=== PATIENT | female | born 1955 | race Caucasian/White ===

== ENCOUNTER → 2016-09-07 | Outpatient (CLI) | payer OTHER ==
[2015-04-24 11:00] VITALS: BP 140/76
[~2016-09-07] MED LIST: ACET325T9 PO; ALLO300T PO; AMOX1TAB61 PO; ASPI-482 PO; CYAN10002 IM; DICL100T PO; DICL75TA PO; ERGO500012 PO; FAMO10TA26 PO; IOHEXOL 240 MG/ML 50ML VIAL. PO ONE; IOHEXOL 300 MG/ML 100ML VIAL. IV ONE; MIRA25TA PO; OMEG1CAP38 PO; SIMV10TA PO; TRAM50TA PO; VENTOLIN HFA18 GM INH
--- NOTE | 2016-09-07 11:21 | KCIC ---
CT abdomen pelvis with contrast Indication: Right colon mass noted on recent colonoscopy. Axial imaging through the abdomen and pelvis was performed after the administration of intravenous contrast. PQRS STATEMENT One or more of the following individualized dose reduction techniques were utilized for this study: 1.Automated exposure control. 2.Adjustment of the mA and/orkVaccording to patient size. 3.Use of iterative reconstruction technique. Comparison is made with prior CT from 10/17/2005. The lung bases are clear. No discrete liver mass is detected. The gallbladder appears surgically absent. The pancreas and spleen are unremarkable. No adrenal mass is detected. The kidneys are unremarkable. Aorta is calcified but not aneurysmal. The small and large bowel loops are normal in caliber. No definite right colonic mass is identified. No central retroperitoneal or mesenteric lymphadenopathy is seen. There is no ascites. There is sigmoid diverticulosis without evidence of diverticulitis. The uterus and bladder are unremarkable. No inguinal or iliac lymphadenopathy is seen. Impression: Sigmoid diverticulosis without evidence of acute diverticulitis. No colonic mass or evidence of abdominal or pelvic lymphadenopathy is detected. No liver mass is detected. Electronically signed by: Genaro Almaraz MD (Sep 07, 2016 11:19:28)
== END | disposition home or self-care (01) ==
LOC: KCIC CT 09:42
PROVIDERS: ATTEND Internal Medicine Gastroenterology
DX: K63.89 Other specified diseases of intestine (principal)
CPT/HCPCS: 74177; Q9966; Q9967

== ENCOUNTER → 2016-10-02 | Outpatient (CLI) | payer OTHER ==
[2015-04-24 11:00] VITALS: BP 140/76
[~2016-10-02] MED LIST changes: -IOHEXOL 240 MG/ML 50ML VIAL. PO ONE; -IOHEXOL 300 MG/ML 100ML VIAL. IV ONE
--- NOTE | 2016-10-02 10:33 | RAD ---
DATE: 10/02/2016 EXAM: DIGITAL SCREEN BILAT W/CAD HISTORY: Screening COMPARISON: One year ago This study was interpreted with the benefit of Computerized Aided Detection (CAD). FINDINGS: Breast Density: FATTY The Breast Parenchyma is primarily fatty replaced. Breast parenchyma level density A.. There has not been a significant change in the appearance of the breasts compared to the previous exam IMPRESSION: Benign finding BI-RADS CATEGORY: 2 BENIGN FINDING(S) RECOMMENDED FOLLOW-UP: 12M 12 MONTH FOLLOW-UP PQRS compliance statement: Patient information was entered into a reminder system with a target due date 10/02/2017 for the next mammogram. Mammography is a sensitive method for finding small breast cancers, but it does not detect them all and is not a substitute for careful clinical examination. A negative mammogram does not negate a clinically suspicious finding and should not result in delay in biopsying a clinically suspicious abnormality. "Our facility is accredited by the [employer] Mammography Program."
== END | disposition home or self-care (01) ==
LOC: MAMMO 09:37
PROVIDERS: ATTEND Family Medicine
DX: Z12.31 Encounter for screening mammogram for malignant neoplasm of breast (principal)
CPT/HCPCS: G0202; 77067

== ENCOUNTER → 2016-10-22 | Outpatient (CLI) | payer OTHER ==
[2015-04-24 11:00] VITALS: BP 140/76
[~2016-10-22] MED LIST changes: +AMOX875T PO; +ASCO500C PO; +BENZ100C PO; -ERGO500012 PO; +ERGO500027 PO; +FERR-26 PO; +PROAIR HFA8.5 GM INH; +PROAIR RESPICL90 MCG IH
[2016-10-22 13:57] LABS: BASO % 1 % (0-3); EOS % 5 % (0-3); HEMATOCRIT 39.4 % (36.0-47.0); HEMOGLOBIN 13.2 g/dL (12.0-15.5); LYMPH # 1.5 x10^3/uL (1.0-4.8); LYMPH % 31 % (24-48); MEAN CORPUSCULAR HEMOGLOBIN 30 pg (25-35); MEAN CORPUSCULAR HGB CONC 34 g/dL (31-37); MEAN CORPUSCULAR VOLUME 90 fL (79-100); MONO % 9 % (0-9); NEUT % 55 % (31-73); PLATELET COUNT 252 x10^3/uL (140-400); RED BLOOD COUNT 4.38 x10^6/uL (3.50-5.40); RED CELL DISTRIBUTION WIDTH 17.2 % (11.5-14.5); WHITE BLOOD COUNT 4.8 x10^3/uL (4.0-11.0)
[2016-10-22 14:07] LABS: ALBUMIN 2.9 g/dL (3.4-5.0); CALCIUM 8.5 mg/dL (8.5-10.1)
[2016-10-22 14:29] LABS: ANISOCYTOSIS SLIGHT; PLT ESTIMATE INCREASED (ADEQUATE)
== END | disposition home or self-care (01) ==
LOC: SURGPAT 12:46
PROVIDERS: ATTEND Surgery
DX: Z01.812 Encounter for preprocedural laboratory examination (principal)
CPT/HCPCS: 36415; 80048; 82040; 85007; 85027

== ENCOUNTER 2016-10-26 10:54 | Emergency (ER) | payer OTHER ==
[~2016-10-26] VITALS: Ht 160 cm; Wt 89.4 kg
[~2016-10-26 10:54] MED LIST changes: -AMOX875T PO; -BENZ100C PO; -PROAIR RESPICL90 MCG IH
[2016-10-26 11:10] VITALS: BP 141/86
--- NOTE | 2016-10-26 11:50 | RAD ---
Chest, 2 views, 10/26/2016: History: Shortness of breath, cough, ear infection Comparison is made to a study from 11/01/2012. The heart size and pulmonary vascularity are normal. No pulmonary infiltrates are seen. There is no evidence of pleural fluid. Mild spurring is present in the spine. IMPRESSION: No acute cardiopulmonary abnormality is detected.
[2016-10-26] MEDS ORDERED: PROAIR RESPICL90 MCG IH (12:20)
[2016-10-26] MEDS ORDERED: AMOX875T PO (12:20)
[2016-10-26] MEDS ORDERED: BENZ100C PO (12:20)
--- NOTE | 2016-10-26 12:21 | PHYS DOC ---
Past Medical History Past Medical History: Arthritis, Asthma, Cancer, High Cholesterol Additional Past Medical Histor: COLON CA, URINARY INCONTINENCE Past Surgical History: Appendectomy, Cholecystectomy, Knee Replacement, Oophorectomy, Tubal ligation Additional Past Surgical Histo: BX KNEE. OVARIAN CYSTS - OOPHORECTOMY. Alcohol Use: None Drug Use: None Adult General Chief Complaint Chief Complaint: COUGH HPI HPI Patient is a 61 year old female with a history of high cholesterol asthma bronchitis and colon cancer who presents today with bilateral ear pain, sore throat, coughing and nasal congestion for 3 days. Patient states she also had subjective fevers last night. Patient denies any chest pain. Patient states she is scheduled to have a partial colectomy next week and would like to make sure she does not have any infection that requires antibiotic treatment. Review of Systems Review of Systems Constitutional: Subjective fevers Eyes: Denies change in visual acuity, redness, or eye pain [] HENT: bilateral ear pain, nasal congestion and sore throat [] Respiratory: cough Cardiovascular: No additional information not addressed in HPI [] GI: Denies abdominal pain, nausea, vomiting, bloody stools or diarrhea [] : Denies dysuria or hematuria [] Musculoskeletal: Denies back pain or joint pain [] Integument: Denies rash or skin lesions [] Neurologic: Denies headache, focal weakness or sensory changes [] Endocrine: Denies polyuria or polydipsia [] Allergies Allergies Allergies Coded Allergies Type Severity Reaction Last Updated Verified Tetanus Vaccines and Toxoid Allergy Intermediate body aches 04/22/15 No aspirin Allergy Intermediate severe stomach cramps 04/22/15 Yes codeine Allergy Intermediate stomach upset 04/22/15 No Physical Exam Physical Exam Constitutional: Well developed, well nourished, no acute distress, non-toxic appearance. [] HENT: Normocephalic, atraumatic, bilateral external ears normal, oropharynx moist, no oral exudates, nose normal. Bilateral TM are moderately injected with small amount of cloudy fluid. Eyes: PERRLA, EOMI, conjunctiva normal, no discharge. [] Neck: Normal range of motion, no tenderness, supple, no stridor. [] Cardiovascular:Heart rate regular rhythm, no murmur [] Lungs & Thorax: Bilateral breath sounds clear to auscultation [] Abdomen: Bowel sounds normal, soft, no tenderness, no masses, no pulsatile masses. [] Skin: Warm, dry, no erythema, no rash. [] Back: No tenderness, no CVA tenderness. [] Extremities: No tenderness, no cyanosis, no clubbing, ROM intact, no edema. [] Neurologic: Alert and oriented X 3, normal motor function, normal sensory function, no focal deficits noted. [] Psychologic: Affect normal, judgement normal, mood normal. [] Current Patient Data Vital Signs Vital Signs Date Time Temp Pulse Resp B/P (MAP) Pulse Ox O2 Delivery O2 Flow Rate FiO2 10/26/16 11:10 98.0 99 18 96 Room Air 98.0 EKG EKG [] Radiology/Procedures Radiology/Procedures [] Course & Med Decision Making Course & Med Decision Making Pertinent Labs and Imaging studies reviewed. (See chart for details) Patient is in the ED with complaints of ear pain cough and nasal congestion. She is scheduled to have a partial colectomy next week. Chest x-ray interpreted by radiologist as negative for any acute findings. She was discharged with amoxicillin for 10 days. Tylenol/Motrin recommended for pain or fever. She was also discharged with Tessalon Perles. Follow-up with PCP next week. Dragon Disclaimer Dragon Disclaimer This electronic medical record was generated, in whole or in part, using a voice recognition dictation system. Departure Departure Impression: Primary Impression: Otitis media Additional Impressions: Upper respiratory infection Fever Cough Pharyngitis, acute Disposition: HOME, SELF-CARE Condition: STABLE Referrals: NICHOLAS DALE MD (PCP) Follow-up with your doctor next week Patient Instructions: Cough, Child, Fever, Child, Otitis Media, Child, Viral and Bacterial Pharyngitis Additional Instructions: You were seen for an ear infection, pharyngitis, coughing and nasal congestion. We put you on antibiotics. Ensure you complete them. You can take Tylenol /Motrin for pain or fever. We sent you home with an inhaler and cough medicine use them as needed. Scripts Benzonatate (TESSALON PERLE) 100 Mg Capsule 1 CAP PO TID, #30 CAP Prov: MUTUNGA,REBECCA TRUCK DRIVER 10/26/16 Amoxicillin (AMOXICILLIN) 875 Mg Tablet 1 TAB PO BID, #20 TAB Prov: MUTUNGA,REBECCA TRUCK DRIVER 10/26/16 Albuterol Sulfate (Proair Respiclick) 90 Mcg Aer.pow.ba 1 PUFF IH PRN Q6HRS Y for SHORTNESS OF BREATH, #1 INHALER Prov: REBECCA HAILE TRUCK DRIVER 10/26/16 Problem Qualifiers Primary Impression: Otitis media Otitis media type: other nonsuppurative Laterality: bilateral Chronicity: acute Recurrence: not specified as recurrent Qualified Codes: H65.193 - Other acute nonsuppurative otitis media, bilateral Additional Impressions: Upper respiratory infection URI type: unspecified URI Qualified Codes: J06.9 - Acute upper respiratory infection, unspecified Fever Fever type: unspecified Qualified Codes: R50.9 - Fever, unspecified Pharyngitis, acute Pharyngitis/tonsillitis etiology: unspecified etiology Qualified Codes: J02.9 - Acute pharyngitis, unspecified REBECCA HAILE TRUCK DRIVER Oct 26, 2016 12:21
== END 2016-10-26 12:23 | disposition home or self-care (01) ==
LOC: ER 10:54
DX: H65.193 Other acute nonsuppurative otitis media, bilateral (principal); J06.9 Acute upper respiratory infection, unspecified; E78.00 Pure hypercholesterolemia, unspecified; J45.909 Unspecified asthma, uncomplicated; Z85.038 Personal history of other malignant neoplasm of large intestine; Z88.6 Allergy status to analgesic agent; Z88.5 Allergy status to narcotic agent; Z88.7 Allergy status to serum and vaccine
CPT/HCPCS: 71020; 99284

== ENCOUNTER → 2016-12-06 | Outpatient (CLI) | payer OTHER ==
[2016-11-23 14:34] VITALS: BP 156/77
[~2016-12-06] MED LIST changes: +AMOX875T PO; +BENZ100C PO; +CETI10TA22 PO; +IOHEXOL 300 MG/ML 100ML VIAL. IV ONE; +MOME13HF2 IH; +OXYC1TAB7 PO; +PROAIR RESPICL90 MCG IH
--- NOTE | 2016-12-06 12:48 | KCIC ---
CHEST CT WITH CONTRAST Clinical indications: Colon cancer. TECHNIQUE: After IV infusion of 75 mL of Omnipaque 300, helical CT scanning of the chest was performed. PQRS compliance Statement One or more of the following individualized dose reduction techniques were utilized for this study: 1. Automated exposure control 2. Adjustment of the mA and/or kV according to patient size 3. Use of iterative reconstruction technique COMPARISON: No previous chest CT available. FINDINGS: No enlarged thoracic lymphadenopathy is seen. No focal aneurysmal dilatation or dissection of the thoracic aorta is seen. The heart size is normal and no pericardial effusion is seen. No pleural effusion or pneumothorax is seen. Calcified granulomas of the right upper lobe are seen. No lung mass or lung consolidation is evident. No pleural effusion or pneumothorax is seen. The proximal bronchial tree is patent. No adrenal mass is evident. No osteolytic process is seen. There is inflammatory change within the anterior abdominal wall and properitoneal fat in association with a new anterior abdominal wall midline incision. Therefore this most likely is postoperative in nature. IMPRESSION: No lung metastatic disease or enlarged lymphadenopathy is seen. Electronically signed by: Chapito Wiggins MD (12/06/2016 12:45 PM) [id number]
== END | disposition home or self-care (01) ==
LOC: KCIC CT 08:04
PROVIDERS: ATTEND Surgery
DX: C18.9 Malignant neoplasm of colon, unspecified (principal)
CPT/HCPCS: 71260

== ENCOUNTER → 2016-12-13 | Day surgery (SDC) | payer OTHER ==
[~2016-12-13] VITALS: Ht 162.6 cm; Wt 87.1 kg
[~2016-12-13] MED LIST changes: +BUPIVACAINE 0.5% 50 ML VIAL. ONE; +BUPIVACAINE-EPI 0.5%-1:200000 50 ML VIAL. ONE; +HEPARIN SODIUM 5,000 UNIT in IV NORMAL SALINE 500ML BAG 500 ML IRR ONE; +HYDROmorphone 2 MG/ML VIAL IV PRN; -IOHEXOL 300 MG/ML 100ML VIAL. IV ONE; +IV RINGERS,LACTATED 1000ML 1,000 ML IV SCH; +LIDOCAINE 1% 1 ML SYRINGE. ID PRN; +MIDAZOLAM HCL/PF 2 MG/2 ML VIAL. ONE; +MORPHINE SULFATE 2 MG/ML DISP.SYRIN. IV PRN; +ONDANSETRON PF 4 MG/2 ML VIAL. IV PRN; +PROCHLORPERAZINE 10 MG/2 ML VIAL. IV PRN; +PROPOFOL 50 ML IV ONE; +ceFAZolin 2GM PREMIX 2 GM/50 ML BAG IV ONE; +fentaNYL PF VIAL 100 MCG/2 ML VIAL IV PRN; +fentaNYL PF VIAL 100 MCG/2 ML VIAL ONE
--- NOTE | 2016-12-13 08:49 | PDOC ---
BRIEF OPERATIVE NOTE Date: Dec 13, 2016 Pre-Op Diagnosis needs venous access for chemotherapy Post-Op Diagnosis same Procedure Performed placement left subclavian power port Surgeon Elie Anesthesia Type: MAC Blood Loss 5cc IV Fluid 800cc Findings post op CXR shows tip in SVC without evidence of a pneumothorax Complications none JOSH BENJAMIN MD Dec 13, 2016 08:49
--- NOTE | 2016-12-13 08:51 | DISCH ---
DISCHARGE INSTRUCTIONS Condition on Discharge Condition on Discharge: Stable Activity After Discharge Activity Instructions for Disc: Activity as tolerated, Avoid exertion Lifting Instructions after Dis: No heavy lifting Driving Instructions after Dis: Do not drive today Diet after Discharge Diet after Discharge: Regular Wound Incision Care Wound/Incision Care: Ice to area for comfort Other wound/incision instructi: leave dressing on Follow-Up Follow up with: Elie two weeks JOSH BENJAMIN MD Dec 13, 2016 08:51
[2016-12-13 09:26] VITALS: BP 134/53
--- NOTE | 2016-12-13 09:55 | RAD ---
Portable chest, 12/13/2016: History: Check catheter placement Comparison is made to a study from 10/26/2006. A left Port-A-Cath has been inserted with its tip lying in the superior vena cava. The heart size and pulmonary vascularity are normal. No pulmonary infiltrates are seen. There is no evidence of pleural fluid or pneumothorax. IMPRESSION: 1. A left Port-A-Cath extends into the superior vena cava. 2. No acute cardiopulmonary abnormality is detected.
--- NOTE | 2016-12-13 10:58 | OP ---
DATE OF SURGERY: 12/13/2016 PREOPERATIVE DIAGNOSIS: Needs venous access for chemotherapy. POSTOPERATIVE DIAGNOSIS: Needs venous access for chemotherapy. PROCEDURE: Placement of a left subclavian PowerPort. SURGEON: Josh Benjamin MD ANESTHESIA: Local with sedation. ESTIMATED BLOOD LOSS: 5 mL. INTRAVENOUS FLUIDS: 800. INDICATIONS: The patient is an obese 61-year-old female status post colon resection for cancer, brought for placement of PowerPort to initiate adjuvant chemotherapy. DESCRIPTION OF PROCEDURE: The patient brought to the operating suite and the infraclavicular areas were prepped and draped in usual sterile fashion. With the bed in Trendelenburg the left infraclavicular area was infiltrated with 0.5% Marcaine plain at the junction medial to those lateral ____ fingerbreath below the clavicle. A small incision made and a seeker needle used to identify the subclavian vein. The flexible guidewire was advanced through the needle into the superior vena cava and then the needle was removed. Table returned to level. Port pocket incision infiltrated with 0.5% Marcaine with epinephrine and incised and developed. Catheter was laid on the chest on with a C-arm ____ appropriate length was assessed. The catheter was then tunneled from the insertion site to the pocket site where it was attached to the reservoir. The reservoir was seated in the pocket and the patient was placed back in Trendelenburg. Under fluoroscopic observation, the dilator and sheath were passed over the wire. The wire was removed. The dilator was removed and the catheter was threaded through the sheath and the sheath was then removed. There was good flow into and out of the catheter completion. Pocket incision closed with interrupted 3-0 Vicryl suture. Skin incisions closed with subcuticular 4-0 Monocryl. Steri-Strips and sterile dressing applied. Prior to dressing the wound final aspiration and flushed and the port was carried out. Postop upper chest x-ray showed the tip of the catheter to reside in the superior vena cava without evidence of pneumothorax. The patient was taken to the postoperative in stable condition having tolerated the procedure well. JOSH BENJAMIN MD DR: QAMAR/beverly JOB#: [id number] / [id number]
== END | disposition home or self-care (01) ==
LOC: SURG 06:31
PROVIDERS: ATTEND Surgery
DX: C18.9 Malignant neoplasm of colon, unspecified (principal); E78.00 Pure hypercholesterolemia, unspecified; J45.909 Unspecified asthma, uncomplicated; E66.9 Obesity, unspecified; M19.90 Unspecified osteoarthritis, unspecified site; Z68.44 Body mass index [BMI] 60.0-69.9, adult; M10.9 Gout, unspecified; F41.9 Anxiety disorder, unspecified; F17.200 Nicotine dependence, unspecified, uncomplicated; D64.9 Anemia, unspecified; Z98.51 Tubal ligation status; Z87.39 Personal history of other diseases of the musculoskeletal system and connective tissue; Z86.39 Personal history of other endocrine, nutritional and metabolic disease; Z96.653 Presence of artificial knee joint, bilateral; Z88.6 Allergy status to analgesic agent; Z90.49 Acquired absence of other specified parts of digestive tract; Z88.7 Allergy status to serum and vaccine; Z88.8 Allergy status to other drugs, medicaments and biological substances; Z79.82 Long term (current) use of aspirin
CPT/HCPCS: 36556; 71010; J0690; J1644; J2250; J2704; J3010; J3490; J7040; C1769; C1788

== ENCOUNTER → 2017-01-08 | Outpatient (CLI) | payer OTHER ==
[2016-12-13 09:26] VITALS: BP 134/53
[~2017-01-08] MED LIST changes: -BUPIVACAINE 0.5% 50 ML VIAL. ONE; -BUPIVACAINE-EPI 0.5%-1:200000 50 ML VIAL. ONE; -HEPARIN SODIUM 5,000 UNIT in IV NORMAL SALINE 500ML BAG 500 ML IRR ONE; -HYDROmorphone 2 MG/ML VIAL IV PRN; -IV RINGERS,LACTATED 1000ML 1,000 ML IV SCH; -LIDOCAINE 1% 1 ML SYRINGE. ID PRN; -MIDAZOLAM HCL/PF 2 MG/2 ML VIAL. ONE; -MORPHINE SULFATE 2 MG/ML DISP.SYRIN. IV PRN; -ONDANSETRON PF 4 MG/2 ML VIAL. IV PRN; -PROCHLORPERAZINE 10 MG/2 ML VIAL. IV PRN; -PROPOFOL 50 ML IV ONE; -ceFAZolin 2GM PREMIX 2 GM/50 ML BAG IV ONE; -fentaNYL PF VIAL 100 MCG/2 ML VIAL IV PRN; -fentaNYL PF VIAL 100 MCG/2 ML VIAL ONE
--- NOTE | 2017-01-08 12:43 | RAD ---
PA and lateral chest x-ray compared to portable chest dated December 13, 2016 for hemoptysis, chemotherapy, history of colon cancer. Findings: The lungs are clear. There is an accessory azygos fissure which is of no clinical significance. Left port is present and unchanged. Degenerative changes of the acromioclavicular joints are seen bilaterally. No other significant osseous abnormalities are evident. Impression: 1. No acute cardiopulmonary abnormality.
== END | disposition home or self-care (01) ==
LOC: RAD 11:08
PROVIDERS: ATTEND Nurse Practitioner Adult Health
DX: R04.2 Hemoptysis (principal); Z85.038 Personal history of other malignant neoplasm of large intestine
CPT/HCPCS: 71020

== ENCOUNTER 2017-03-06 10:39 | Emergency (ER) | payer OTHER ==
[~2017-03-06] VITALS: Ht 160 cm; Wt 84.8 kg
[2017-03-06] MEDS ORDERED: ONDANSETRON PF 4 MG/2 ML VIAL. IV ONE (11:15)
[2017-03-06] MEDS ORDERED: FAMOTIDINE 20 MG/2 ML VIAL IVP ONE (11:15)
[2017-03-06] MEDS ORDERED: IV NORMAL SALINE 1000ML BAG 1,000 ML IV ONE (11:15)
[2017-03-06 11:20] LABS: BASO % 0 % (0-3); EOS % 0 % (0-3); HEMATOCRIT 44.6 % (36.0-47.0); HEMOGLOBIN 14.8 g/dL (12.0-15.5); LYMPH # 0.9 x10^3/uL (1.0-4.8); LYMPH % 13 % (24-48); MEAN CORPUSCULAR HEMOGLOBIN 31 pg (25-35); MEAN CORPUSCULAR HGB CONC 33 g/dL (31-37); MEAN CORPUSCULAR VOLUME 94 fL (79-100); MONO % 16 % (0-9); NEUT % 71 % (31-73); PLATELET COUNT 176 x10^3/uL (140-400); RED BLOOD COUNT 4.73 x10^6/uL (3.50-5.40); RED CELL DISTRIBUTION WIDTH 19.4 % (11.5-14.5); WHITE BLOOD COUNT 7.1 x10^3/uL (4.0-11.0)
--- NOTE | 2017-03-06 11:20 | PHYS DOC ---
Past Medical History Past Medical History: Arthritis, Asthma, Cancer, High Cholesterol Additional Past Medical Histor: COLON CA, URINARY INCONTINENCE Past Surgical History: Appendectomy, Cholecystectomy, Knee Replacement, Oophorectomy, Tubal ligation Additional Past Surgical Histo: BX KNEE. OVARIAN CYSTS - OOPHORECTOMY. Alcohol Use: None Drug Use: None Adult General Chief Complaint Chief Complaint: ABDOMINAL PAIN HPI HPI Patient is a 61 year old female with history of high cholesterol, asthma, arthritis, colon cancer currently on chemotherapy who presents today with mid bilateral abdominal pain, nausea vomiting and diarrhea that began 4 days ago. Patient denies any hematemesis or melena. Denies any fever. Last chemotherapy treatment on 02/26/2017 Review of Systems Review of Systems Constitutional: Denies fever or chills [] Eyes: Denies change in visual acuity, redness, or eye pain [] HENT: Denies nasal congestion or sore throat [] Respiratory: Denies cough or shortness of breath [] Cardiovascular: No additional information not addressed in HPI [] GI: mid abdominal pain, nausea, vomiting, and diarrhea [] : Denies dysuria or hematuria [] Musculoskeletal: Denies back pain or joint pain [] Integument: Denies rash or skin lesions [] Neurologic: Denies headache, focal weakness or sensory changes [] Current Medications Current Medications Current Medications Medications (Trade) Dose Ordered Sig/Sammy Start Time Stop Time Status Last Admin Dose Admin Famotidine (Pepcid) 20 mg 1X ONCE 03/06/17 11:15 03/06/17 11:16 DC 03/06/17 11:32 20 MG Info (Do NOT chart on this entry -- for MONITORING) 1 each PRN DAILY PRN 03/06/17 11:45 03/08/17 11:44 Iohexol (Omnipaque 300 Mg/ml) 75 ml 1X ONCE 03/06/17 11:30 03/06/17 11:35 DC 03/06/17 11:43 75 ML Ondansetron HCl (Zofran) 8 mg 1X ONCE 03/06/17 11:15 03/06/17 11:16 DC 03/06/17 11:32 8 MG Sodium Chloride 1,000 ml @ 1,000 mls/hr 1X ONCE 03/06/17 11:15 03/06/17 12:14 DC 03/06/17 11:32 1,000 MLS/HR Allergies Allergies Allergies Coded Allergies Type Severity Reaction Last Updated Verified Tetanus Vaccines and Toxoid Allergy Intermediate body aches 11/22/16 Yes aspirin Allergy Intermediate severe stomach cramps 11/19/16 Yes lactose Allergy Intermediate 11/20/16 Yes meperidine Adverse Reaction Intermediate 11/19/16 Yes codeine Adverse Reaction Mild stomach upset 11/23/16 Yes Physical Exam Physical Exam Constitutional: Well developed, well nourished, no acute distress, non-toxic appearance. [] HENT: Normocephalic, atraumatic, bilateral external ears normal, oropharynx moist, no oral exudates, nose normal. [] Eyes: PERRLA, EOMI, conjunctiva normal, no discharge. [] Neck: Normal range of motion, no tenderness, supple, no stridor. [] Cardiovascular:Heart rate regular rhythm, no murmur [] Lungs & Thorax: Bilateral breath sounds clear to auscultation [] Abdomen: Old healed surgical incision noted midline abdomen. Tenderness diffusely midline abdomen. No right upper quadrant or right lower quadrant tenderness. Bowel sounds normal, soft, no masses, no pulsatile masses. [] Skin: Warm, dry, no erythema, no rash. [] Back: No tenderness, no CVA tenderness. [] Extremities: No tenderness, no cyanosis, no clubbing, ROM intact, no edema. [] Neurologic: Alert and oriented X 3, normal motor function, normal sensory function, no focal deficits noted. [] Psychologic: Affect normal, judgement normal, mood normal. [] Current Patient Data Vital Signs Vital Signs Date Time Temp Pulse Resp B/P (MAP) Pulse Ox O2 Delivery O2 Flow Rate FiO2 03/06/17 11:05 98.3 114 14 167/84 (111) 100 Room Air 98.3 Lab Values Laboratory Tests Test 03/06/17 11:10 03/06/17 11:11 White Blood Count 7.1 x10^3/uL (4.0-11.0) Red Blood Count 4.73 x10^6/uL (3.50-5.40) Hemoglobin 14.8 g/dL (12.0-15.5) Hematocrit 44.6 % (36.0-47.0) Mean Corpuscular Volume 94 fL (79-100) Mean Corpuscular Hemoglobin 31 pg (25-35) Mean Corpuscular Hemoglobin Concent 33 g/dL (31-37) Red Cell Distribution Width 19.4 % (11.5-14.5) H Platelet Count 176 x10^3/uL (140-400) Neutrophils (%) (Auto) 71 % (31-73) Lymphocytes (%) (Auto) 13 % (24-48) L Monocytes (%) (Auto) 16 % (0-9) H Eosinophils (%) (Auto) 0 % (0-3) Basophils (%) (Auto) 0 % (0-3) Neutrophils # (Auto) 5.1 x10^3uL (1.8-7.7) Lymphocytes # (Auto) 0.9 x10^3/uL (1.0-4.8) L Monocytes # (Auto) 1.1 x10^3/uL (0.0-1.1) Eosinophils # (Auto) 0.0 x10^3/uL (0.0-0.7) Basophils # (Auto) 0.0 x10^3/uL (0.0-0.2) Sodium Level 133 mmol/L (136-145) L Potassium Level 3.2 mmol/L (3.5-5.1) L Chloride Level 97 mmol/L (98-107) L Carbon Dioxide Level 25 mmol/L (21-32) Anion Gap 11 (6-14) Blood Urea Nitrogen 19 mg/dL (7-20) Creatinine 1.1 mg/dL (0.6-1.0) H Estimated GFR (Cockcroft-Gault) 50.2 BUN/Creatinine Ratio 17 (6-20) Glucose Level 123 mg/dL (70-99) H Calcium Level 8.7 mg/dL (8.5-10.1) Total Bilirubin 0.5 mg/dL (0.2-1.0) Aspartate Amino Transferase (AST) 27 U/L (15-37) Alanine Aminotransferase (ALT) 26 U/L (14-59) Alkaline Phosphatase 195 U/L (46-116) H Total Protein 7.2 g/dL (6.4-8.2) Albumin 2.9 g/dL (3.4-5.0) L Albumin/Globulin Ratio 0.7 (1.0-1.7) L Lipase 368 U/L (73-393) Urine Collection Type Unknown Urine Color Jane Urine Clarity Clear Urine pH 6.5 Urine Specific [place] >=1.030 Urine Protein 100 mg/dL (NEG-TRACE) Urine Glucose (UA) Negative mg/dL (NEG) Urine Ketones (Stick) Trace mg/dL (NEG) Urine Blood Negative (NEG) Urine Nitrite Negative (NEG) Urine Bilirubin Moderate (NEG) Urine Urobilinogen Dipstick 1.0 mg/dL (0.2 mg/dL) Urine Leukocyte Esterase Small (NEG) Urine RBC Occ /HPF (0-2) Urine WBC 1-4 /HPF (0-4) Urine Squamous Epithelial Cells Few /LPF Urine Bacteria Many /HPF (0-FEW) Urine Hyaline Casts Occasional /HPF Urine Mucus Marked /LPF Laboratory Tests 03/06/17 11:10 Laboratory Tests 03/06/17 11:10 EKG EKG 11:[address] Madsen sinus rhythm, heart rate 100, no STEMI.[] Radiology/Procedures Radiology/Procedures [] Course & Med Decision Making Course & Med Decision Making Pertinent Labs and Imaging studies reviewed. (See chart for details) This is a 61-year-old female patient with history of colon cancer currently on chemotherapy presenting today with mid abdominal pain, nausea, vomiting and diarrhea for 4 days. CBC CMP lipase with no acute findings. CT of the abdomen and pelvic was negative for any acute findings. Urine negative for infection shows patient is dehydrated. Patient was given IV fluids in the ED with good relief of her symptoms. She states she is feeling better. She was discharged with instructions to push fluids. She was also discharged with dicyclomine. She has Zofran and Compazine at home. She is to follow-up with her PCP in the next 1 -3 days. Discharged with Lomotil. Dragon Disclaimer Dragon Disclaimer This electronic medical record was generated, in whole or in part, using a voice recognition dictation system. Departure Departure Impression: Primary Impression: Nausea and vomiting Additional Impressions: Diarrhea Dehydration Disposition: 01 HOME, SELF-CARE Condition: STABLE Referrals: Jose DALE MD (PCP) Follow up in 1-3 days Patient Instructions: Dehydration, Adult, Diarrhea, [id number], Nausea and Vomiting, [id number] Additional Instructions: You were seen with symptoms consistent with dehydration. Please push fluids. Take the Compazine or Zofran you have at home as needed for nausea or vomiting. Take Lomotil for diarrhea. Follow up with your doctor in the next 1-3 days. Come back to the ED if symptoms worsen. Scripts Diphenoxylate Hcl/Atropine (LOMOTIL TABLET) 1 Each Tablet 1 TAB PO TID Y for DIARRHEA, #20 TAB Prov: REBECCA HAILE APRN 03/06/17 Problem Qualifiers Primary Impression: Nausea and vomiting Vomiting type: unspecified Vomiting Intractability: non-intractable Qualified Codes: R11.2 - Nausea with vomiting, unspecified Additional Impressions: Diarrhea Diarrhea type: unspecified type Qualified Codes: R19.7 - Diarrhea, unspecified REBECCA HAILE APRN Mar 06, 2017 11:20
[2017-03-06 11:21] LABS: BILIRUBIN,URINE MODERATE (NEG); GLUCOSE,URINE NEGATIVE (NEG); NITRITE,URINE NEGATIVE (NEG); PH,URINE 6.5; PROTEIN,URINE 100 mg/dL (NEG-TRACE)
[2017-03-06 11:27] LABS: CALCIUM 8.7 mg/dL (8.5-10.1); CREATININE 1.1 mg/dL (0.6-1.0); GFR 50.2; POTASSIUM 3.2 mmol/L (3.5-5.1)
[2017-03-06] MEDS ORDERED: IOHEXOL 300 MG/ML 75 ML VIAL IV ONE (11:30)
[2017-03-06 11:33] LABS: ALBUMIN 2.9 g/dL (3.4-5.0); ALBUMIN/GLOBULIN RATIO 0.7 (1.0-1.7); TOTAL BILIRUBIN 0.5 mg/dL (0.2-1.0); TOTAL PROTEIN 7.2 g/dL (6.4-8.2)
[2017-03-06 11:37] LABS: BACTERIA,URINE MANY /HPF (0-FEW); RBC,URINE OCC /HPF (0-2); SQUAMOUS EPITHELIAL CELL,UR FEW /LPF
[2017-03-06] MEDS ORDERED: CONTRAST GIVEN MC PRN (11:45)
--- NOTE | 2017-03-06 12:51 | RAD ---
CT of the abdomen and pelvis with contrast, 03/06/2017: History: Nausea and vomiting Multidetector CT imaging was performed following an IV bolus injection of iodinated contrast material. No oral contrast material was given for this study. There are calcified granulomata in the liver and spleen. There is no evidence of a hepatic mass or bile duct dilatation. The gallbladder is surgically absent. No pancreatic abnormality is detected. The spleen is of normal size. The kidneys show no evidence of obstruction or mass. There is mild aortoiliac calcific plaquing. There is no evidence of aneurysm. No abdominal or pelvic adenopathy is seen. The uterus is unremarkable. There has been partial resection of the right colon. The appendix is surgically absent. The bowel loops are not dilated. No free air or free fluid is evident in the abdomen or pelvis. There is soft tissue thickening involving the anterior abdominal wall at the upper pelvic level near the midline compatible with postsurgical scarring in this patient with a history of previous hernia repair. There is no evidence of recurrent hernia. There are adjacent matted small bowel loops in the anterior aspect of the pelvis without evidence of obstruction. There is a moderate lumbar scoliosis with extensive multilevel degenerative change. IMPRESSION: 1. Postsurgical findings as described above. 2. No acute abdominal or pelvic abnormality is detected. PQRS Compliance Statement: One or more of the following individualized dose reduction techniques were utilized for this examination: 1. Automated exposure control 2. Adjustment of the mA and/or kV according to patient size 3. Use of iterative reconstruction technique
[2017-03-06 12:58] VITALS: BP 151/80
--- NOTE | 2017-03-06 13:11 | EKG ---
[facility] [address] [place] [address] Test Date: 2017-03-06 Test Time: 11:15:12 Pat Name: CARROLL HERNANDEZ Department: Room: Gender: F Protein Specialist: : [id number] Requested By: STAFF NON Order Number: [id number] Reading MD: Mackenzie Richard Measurements Intervals [place] Rate: 100 P: 34 DE: 134 QRS: -39 QRSD: 76 T: 26 QT: 324 QTc: 421 Interpretive Statements SINUS RHYTHM ABNORMAL LEFT AXIS DEVIATION LOW LIMB LEAD VOLTAGE Electronically Signed On 03-09-2017 14:36:42 CDT by Mackenzie Richard
[2017-03-06] MEDS ORDERED: DIPH1TAB PO (13:12)
[2017-03-06] MEDS ORDERED: DICYCLOMINE HCL 10 MG CAPSULE PO ONE (13:15)
[2017-03-06] MEDS ORDERED: traMADol 50 MG TABLET PO ONE (13:15)
== END 2017-03-06 13:56 | disposition home or self-care (01) ==
LOC: ER 10:39
DX: E86.0 Dehydration (principal); R11.2 Nausea with vomiting, unspecified; R19.7 Diarrhea, unspecified; E78.00 Pure hypercholesterolemia, unspecified; J45.909 Unspecified asthma, uncomplicated; M19.90 Unspecified osteoarthritis, unspecified site; Z98.890 Other specified postprocedural states; Z90.49 Acquired absence of other specified parts of digestive tract; Z90.721 Acquired absence of ovaries, unilateral; Z98.51 Tubal ligation status; Z88.5 Allergy status to narcotic agent; Z88.7 Allergy status to serum and vaccine; Z88.8 Allergy status to other drugs, medicaments and biological substances; Z91.011 Allergy to milk products
CPT/HCPCS: 36415; 74177; 80053; 81001; 83690; 85025; 87086; 93005; 96361; 96374; 96375; 99285; J2405; J7030; Q9967; S0028

== ENCOUNTER → 2017-08-19 | Outpatient (CLI) | payer OTHER ==
[2017-08-19] MEDS: IOHEXOL 240 MG/ML 50ML VIAL. PO (10:38)
[2017-08-19] MEDS: IOHEXOL 300 MG/ML 100ML VIAL. IV (10:38)
== END | disposition home or self-care (01) ==
LOC: KCIC CT 09:27
DX: C18.2 Malignant neoplasm of ascending colon (principal); K43.2 Incisional hernia without obstruction or gangrene; J84.10 Pulmonary fibrosis, unspecified; Z90.49 Acquired absence of other specified parts of digestive tract
CPT/HCPCS: 71260; 74177; Q9966; Q9967

== ENCOUNTER → 2017-10-21 | Outpatient (CLI) | payer OTHER | END | disposition home or self-care (01) | LOC: MAMMO 10:33 | DX: Z12.31 Encounter for screening mammogram for malignant neoplasm of breast (principal) | CPT/HCPCS: 77067 ==

== ENCOUNTER → 2018-09-05 | Outpatient (CLI) | payer OTHER ==
[~2018-09-05] MED LIST changes: +ALBU2.5V8 INH; +CONTRAST GIVEN. MC PRN; +DIPH1TAB PO; -FERR-26 PO; +FERR325T14 PO; +IOHEXOL 240 MG/ML 50ML VIAL. PO ONE; +IOHEXOL 300 MG/ML 100ML VIAL. IV ONE; -PROAIR HFA8.5 GM INH
--- NOTE | 2018-09-05 17:00 | RAD ---
Examination: CT CHEST ABD PELVIS W/CONTRAST History: SURVIELLANCE OF COLON CA INJ 60ML OMNI 300 PREV SENT Comparison/Correlation: 08/19/2017 CT chest abdomen pelvis with contrast Findings: Axial images of the chest, abdomen, and pelvis were obtained following IV contrast. Sagittal and coronal reformatted images were provided. Small left thyroid lobe nodule is unchanged. Calcified granulomas involve the anterior right upper lung field anteriorly. No suspicious pulmonary nodule or mass lesion. No infiltrate or pleural effusion. No enlarged thoracic lymph nodes. Small hiatal hernia is present. Azygous lobe incidentally is seen. No enlarged thoracic lymph nodes. Cholecystectomy noted. Calcified granulomas involve the liver and spleen. Pancreas is normal. Adrenal glands are unremarkable. Ventral epigastric level abdominal wall hernia defect containing omental fat is present. Abdominal wall deformity compatible with previous surgical intervention noted. Kidneys are unremarkable. No enlarged abdominal or pelvic lymph nodes. Diverticulosis is present. No bowel obstruction or extraluminal gas. Uterus is unremarkable. No ascites or pelvic free fluid. Ileocolic anastomosis is present. No suspicious wall thickening at the site of the ileocolic anastomosis as described previously. Absence of the ascending colon noted. Severe multilevel degenerative space narrowing of the lumbar spine is present with vacuum phenomenon. Facet joint degenerative changes at multiple levels bilaterally noted. No acute bony process. This Impression: No evidence of mass or inflammatory process. No findings to suggest recurrence, lymphadenopathy, or metastases. Small hiatal hernia. Postoperative changes of the abdominal wall. Small epigastric level ventral wall hernia defect contains omental fat. PQRS Compliance Statement: One or more of the following individualized dose reduction techniques were utilized for this examination: 1. Automated exposure control 2. Adjustment of the mA and/or kV according to patient size 3. Use of iterative reconstruction technique Electronically signed by: Baldemar Stanton MD (09/05/2018 4:57 PM) [facility]
== END | disposition home or self-care (01) ==
LOC: CT 14:15
PROVIDERS: ATTEND Internal Medicine Hematology & Oncology
DX: C18.2 Malignant neoplasm of ascending colon (principal); K44.9 Diaphragmatic hernia without obstruction or gangrene; K57.30 Diverticulosis of large intestine without perforation or abscess without bleeding; K43.9 Ventral hernia without obstruction or gangrene; J84.10 Pulmonary fibrosis, unspecified; K76.89 Other specified diseases of liver; D73.89 Other diseases of spleen; M48.061 Spinal stenosis, lumbar region without neurogenic claudication; M47.816 Spondylosis without myelopathy or radiculopathy, lumbar region; Z90.49 Acquired absence of other specified parts of digestive tract
CPT/HCPCS: 71260; 74177; Q9966; Q9967

== ENCOUNTER → 2019-01-13 | Outpatient (CLI) | payer MEDICAID ==
[~2019-01-13] MED LIST changes: -CONTRAST GIVEN. MC PRN; -IOHEXOL 240 MG/ML 50ML VIAL. PO ONE; -IOHEXOL 300 MG/ML 100ML VIAL. IV ONE
--- NOTE | 2019-01-13 15:19 | RAD ---
DATE: 01/13/2019 EXAM: DIGITAL SCREEN BILAT W/CAD HISTORY: Asymptomatic screening mammogram. COMPARISON: Prior mammogram from 10/21/2017, 10/02/2016, 09/15/2015 This study was interpreted with the benefit of Computerized Aided Detection (CAD). Breast Density: SCATTERED The breast parenchyma shows scattered fibroglandular densities. Breast parenchyma level B. FINDINGS: 2-D CC and MLO views of each breast were obtained. Right breast: There are no suspicious microcalcifications, masses or areas of architectural distortion. Left breast: There are no suspicious microcalcifications, masses or areas of architectural distortion. Bilateral mammograms compared to prior examinations and appears unchanged. IMPRESSION: Negative bilateral mammogram. BI-RADS CATEGORY: 1 NEGATIVE RECOMMENDED FOLLOW-UP: 12M 12 MONTH FOLLOW-UP PQRS compliance statement: Patient information was entered into a reminder system with a target due date 01/14/2020 for the next mammogram. Mammography is a sensitive method for finding small breast cancers, but it does not detect them all and is not a substitute for careful clinical examination. A negative mammogram does not negate a clinically suspicious finding and should not result in delay in biopsying a clinically suspicious abnormality. "Our facility is accredited by the [employer] Mammography [employer]."
== END | disposition home or self-care (01) ==
LOC: MAMMO 13:43
PROVIDERS: ATTEND Family Medicine
DX: N64.89 Other specified disorders of breast (principal); Z12.31 Encounter for screening mammogram for malignant neoplasm of breast
CPT/HCPCS: 77067

== ENCOUNTER → 2019-11-16 | Outpatient (CLI) | payer OTHER, MEDICAID ==
[~2019-11-16] MED LIST changes: -CETI10TA22 PO; +CETI10TA24 PO; +IOHEXOL 240 MG/ML 50ML VIAL. PO ONE; +IOHEXOL 300 MG/ML 100ML VIAL. IV ONE
--- NOTE | 2019-11-16 14:14 | KCIC ---
EXAM: CT Chest, Abdomen, and Pelvis with IV contrast INDICATION: Reason: COLON CANCER / Spl. Instructions: ORAL AND IV OMNI 300 100ML / History: TECHNIQUE: Multi-detector row CT images were acquired from the thoracic inlet through the ischial tuberosities with the use of IV contrast. Sagittal and coronal images were acquired from the transaxial data. All CT scans performed at this facility utilize dose optimization techniques as appropriate to the exam, including the following: Automated exposure control and adjustment of the mA and/or KV according to patient size (this includes techniques or standardized protocols for targeted exams where dose is indication/reason for exam). IV CONTRAST: Administered ORAL CONTRAST: Administered COMPARISON: Chest abdomen pelvis CT with IV contrast of 09/05/2018. FINDINGS: CHEST: CARDIOVASCULAR: Unremarkable MEDIASTINUM & DONNA: No adenopathy or masses. Calcified right hilar nodes noted.. LUNGS: No pulmonary infiltrate, suspicious nodule, or other significant focal abnormality. Calcified granuloma in the right upper lobe are noted. PLEURAL SPACE: No pleural effusions or pneumothorax. OSSEOUS & SOFT TISSUE: Unremarkable ABDOMEN/PELVIS: LIVER: Scattered calcifications compatible with granulomas. Otherwise unremarkable. BILIARY SYSTEM: Gallbladder surgically absent. Bile ducts are not abnormally dilated. PANCREAS: Unremarkable SPLEEN: Scattered splenic granulomas. Otherwise unremarkable. ADRENALS: Unremarkable KIDNEYS & URETERS: Unremarkable BLADDER: Unremarkable REPRODUCTIVE ORGANS: Unremarkable GASTROINTESTINAL: Enteric contrast administered dilutes gradually to collapsed small bowel loops leading into one of 2 ventral abdominal wall bowel-containing hernias. The more superior ventral hernia has a 1.2 cm neck and contains an unopacified small bowel loop. No perienteric soft tissue stranding. The appendix is not seen and may be surgically absent. There are no findings for bowel obstruction, perforation or acute inflammation. MESENTERY/PERITONEUM/RETROPERITONEUM: Unremarkable VASCULAR: Scattered arterial calcifications. LYMPH NODES: No adenopathy OSSEOUS & SOFT TISSUES: Fat-containing ventral abdominal hernia also noted just below the transverse colon 11 cm caudal to the xiphoid process. IMPRESSION: Posttreatment changes in the abdomen but no findings suspicious for recurrent or metastatic disease. Electronically signed by: Ping Belle MD (11/16/2019 2:11 PM) [id number]
== END | disposition home or self-care (01) ==
LOC: KCIC CT 08:38
PROVIDERS: ATTEND Internal Medicine Hematology & Oncology
DX: K43.9 Ventral hernia without obstruction or gangrene (principal); C18.2 Malignant neoplasm of ascending colon; J98.4 Other disorders of lung; Q42.8 Congenital absence, atresia and stenosis of other parts of large intestine; I70.91 Generalized atherosclerosis; J84.10 Pulmonary fibrosis, unspecified; Z90.49 Acquired absence of other specified parts of digestive tract; Z88.6 Allergy status to analgesic agent; Z88.5 Allergy status to narcotic agent; Z88.8 Allergy status to other drugs, medicaments and biological substances
CPT/HCPCS: 71260; 74177; 82565; Q9966; Q9967

== ENCOUNTER → 2020-02-24 | Outpatient (CLI) | payer MEDICAID ==
[~2020-02-24] MED LIST changes: -CETI10TA24 PO; +CETI10TA74 PO; -IOHEXOL 240 MG/ML 50ML VIAL. PO ONE; -IOHEXOL 300 MG/ML 100ML VIAL. IV ONE
--- NOTE | 2020-02-24 16:23 | RAD ---
DATE: 02/24/2020 1:39 PM EXAM: MAMMO [facility] SCREENING BILATERAL HISTORY: Screening COMPARISON: 01/13/2019, 10/21/2017 Bilateral CC and MLO views of the breasts were performed. Bilateral breast tomosynthesis was performed in CC and MLO projections. This study was interpreted with the benefit of Computerized Aided Detection (CAD). FINDINGS: Breast Density: SCATTERED The breast parenchyma shows scattered fibroglandular densities. Breast parenchyma level B No suspicious masses, microcalcifications or architectural distortion is present to suggest malignancy in either breast. The visualized axillae are unremarkable. IMPRESSION: No mammographic evidence of malignancy. BI-RADS CATEGORY: 1 NEGATIVE RECOMMENDED FOLLOW-UP: 12M 12 MONTH FOLLOW-UP Annual screening mammography is recommended, unless clinically indicated sooner based on symptoms or change in physical exam. PQRS compliance statement: Patient information was entered into a reminder system with a target due date for the next mammogram. Mammography is a sensitive method for finding small breast cancers, but it does not detect them all and is not a substitute for careful clinical examination. A negative mammogram does not negate a clinically suspicious finding and should not result in delay in biopsying a clinically suspicious abnormality. "Our facility is accredited by the [employer] Mammography Program."
== END ==
LOC: MAMMO 13:33
PROVIDERS: ATTEND Family Medicine
DX: Z12.31 Encounter for screening mammogram for malignant neoplasm of breast (principal)
CPT/HCPCS: 77063; 77067

== ENCOUNTER → 2020-12-05 | Outpatient (CLI) | payer OTHER, MEDICAID ==
[~2020-12-05] MED LIST changes: +IOHEXOL 240 MG/ML 50ML VIAL. PO ONE; +IOHEXOL 300 MG/ML 100ML VIAL. IV ONE
[2020-12-05 08:10] LABS: ALBUMIN 2.9 g/dL (3.4-5.0); ALBUMIN/GLOBULIN RATIO 0.7 (1.0-1.7); CALCIUM 9.2 mg/dL (8.5-10.1); GFR 55.3; POTASSIUM 3.8 mmol/L (3.5-5.1); TOTAL BILIRUBIN 0.7 mg/dL (0.2-1.0); TOTAL PROTEIN 6.8 g/dL (6.4-8.2)
[2020-12-05 08:22] LABS: BASO % 1 % (0-3); EOS # 0.1 x10^3/uL (0.0-0.7); EOS % 3 % (0-3); HEMATOCRIT 42.4 % (36.0-47.0); HEMOGLOBIN 14.3 g/dL (12.0-15.5); LYMPH % 37 % (24-48); MEAN CORPUSCULAR HEMOGLOBIN 33 pg (25-35); MEAN CORPUSCULAR HGB CONC 34 g/dL (31-37); MEAN CORPUSCULAR VOLUME 98 fL (79-100); MONO # 0.6 x10^3/uL (0.0-1.1); MONO % 10 % (0-9); NEUT # 2.7 x10^3/uL (1.8-7.7); NEUT % 50 % (31-73); PLATELET COUNT 261 x10^3/uL (140-400); RED BLOOD COUNT 4.34 x10^6/uL (3.50-5.40); RED CELL DISTRIBUTION WIDTH 14.6 % (11.5-14.5); WHITE BLOOD COUNT 5.4 x10^3/uL (4.0-11.0)
--- NOTE | 2020-12-05 10:42 | RAD ---
Examination: CT chest abdomen pelvis with IV and oral contrast HISTORY: History of colon cancer COMPARISON: 11/16/2019 TECHNIQUE: Axial CT images of the chest abdomen pelvis with IV contrast. Coronal and sagittal reforma ts are performed Exposure: One or more of the following individualized dose reduction techniques were utilized for thi s examination: 1. Automated exposure control 2. Adjustment of the mA and/or kV according to patient size 3. Use of iterative reconstruction technique FINDINGS: There is a 1 cm hypodensity identified in the left lobe of thyroid gland. The central airwa ys are patent. The caliber of the aorta grossly appears unremarkable. No radiologically significant m ediastinal lymphadenopathy. 2 small calcified granulomas identified in the right upper lobe of the andrei ng, otherwise the lungs are clear. There is diffuse decreased attenuation noted in the liver likely h epatic steatosis. Few calcified nodules identified in the spleen and the liver. The adrenals grossly appears unremarkable. The stomach is mildly distended with visualized pancreas grossly appears unrema rkable. The small bowel is nondilated. 2 small ventral hernia is identified in the anterior abdominal wall containing loops of small bowel without obstruction similar to prior exam. Fat-containing ventr al hernia in the anterior abdominal wall similar to prior exam. Multiple colonic diverticulosis. The bilateral kidneys enhance symmetrically. Moderate degenerative changes thoracic and lumbar spine. IMPRESSION: 1. No evidence of metastatic disease. 2. Hepatic steatosis. 3. 2 small ventral hernia is identified in the anterior abdominal wall containing loops of small bow el without obstruction similar to prior exam. Fat-containing ventral hernia in the anterior abdominal wall similar to prior exam. 4. 1 cm hypodensity identified in the left lobe of thyroid gland. Follow-up nonemergent ultrasound t hyroid is recommended. Electronically signed by: Massimo Munoz MD (12/05/2020 10:39 AM) [id number]
== END ==
LOC: CT 09:20
PROVIDERS: ATTEND Internal Medicine Hematology & Oncology
DX: K76.0 Fatty (change of) liver, not elsewhere classified (principal); K43.9 Ventral hernia without obstruction or gangrene; R59.0 Localized enlarged lymph nodes; J84.10 Pulmonary fibrosis, unspecified; K76.89 Other specified diseases of liver; D73.89 Other diseases of spleen; K31.89 Other diseases of stomach and duodenum; K57.30 Diverticulosis of large intestine without perforation or abscess without bleeding; C18.2 Malignant neoplasm of ascending colon
CPT/HCPCS: 36415; 71260; 74177; 80053; 82378; 85025; Q9966; Q9967

== ENCOUNTER → 2021-01-05 | Outpatient (CLI) | payer OTHER, MEDICAID ==
[~2021-01-05] MED LIST changes: -IOHEXOL 240 MG/ML 50ML VIAL. PO ONE; -IOHEXOL 300 MG/ML 100ML VIAL. IV ONE
--- NOTE | 2021-01-05 08:38 | RAD ---
EXAM: Thyroid sonogram. HISTORY: Thyroid nodule. TECHNIQUE: Sonographic imaging of the thyroid was performed. COMPARISON: None. FINDINGS: The right thyroid lobe measures 3.3 x 1.3 x 1.5 cm. The left thyroid lobe measures 4.0 x 1. 4 x 1.6 cm. The thyroid isthmus measures 4.0 mm. The thyroid parenchyma is diffusely heterogeneous. There is a solid heterogeneous predominantly isoechoic nodule within the mid left thyroid lobe measur ing 2.1 x 1.4 x 1.2 cm. This is wider than tall and demonstrates slightly indistinct margins. There is a 9 x 8 x 4 mm heterogeneous predominantly solid isoechoic and hypoechoic nodule within the mid right thyroid lobe and similar-appearing heterogeneous nodule within the inferior right thyroid l obe measuring 5 x 4 x 4 mm. No additional discrete measurable thyroid nodule is seen. IMPRESSION: 1. 2.1 cm left thyroid nodule.TI-RADS Category 4. Sonographic fine-needle aspiration is recommended i f not previously performed. 2. Subcentimeter right thyroid nodules. TI-RADS Category 3. These are likely benign. 3. Diffusely heterogeneous thyroid parenchyma. Electronically signed by: Margaret Guillaume MD (01/05/2021 8:36 AM) [id number]
== END ==
LOC: US 08:40
PROVIDERS: ATTEND Internal Medicine Hematology & Oncology
DX: E04.2 Nontoxic multinodular goiter (principal)
CPT/HCPCS: 76536

== ENCOUNTER → 2021-03-02 | Outpatient (CLI) | payer OTHER, MEDICAID ==
--- NOTE | 2021-03-03 17:45 | RAD ---
Bilateral digital screening 2-D and 3-D (digital breast tomosynthesis) mammogram: Reason for examination: Routine screening. Comparison: Mammograms from 02/24/2020 and 01/13/2019. Interpretation was made with the benefit of CAD. FINDINGS: Breast density: Category B. There are scattered areas of fibroglandular density. No new suspicious breast mass, malignant appearing calcifications, or architectural distortion is see n. IMPRESSION: No evidence of malignancy. Assessment: BI-RADS 1. Negative. Recommendation: Routine screening mammograms. The patient will receive a letter with the results in the mail. Patient information will be entered i nto the mammography reminder system with a target recall date for the next mammogram. A reminder disha er will be generated. Electronically signed by: Ginger Quiroga MD (03/03/2021 5:43 PM) [id number]
== END ==
LOC: MAMMO 12:14
PROVIDERS: ATTEND Family Medicine
DX: Z12.31 Encounter for screening mammogram for malignant neoplasm of breast (principal)
CPT/HCPCS: 77063; 77067

== ENCOUNTER → 2021-08-14 | Outpatient (CLI) | payer OTHER, MEDICAID ==
[2021-04-04 15:00] VITALS: BP 164/92
[~2021-08-14] MED LIST changes: +GABA300C9 PO; +HYDR12.58 PO; +SIMV20TA18 PO
[2021-08-14 08:47] LABS: BASO % 1 % (0-3); EOS # 0.1 x10^3/uL (0.0-0.7); EOS % 3 % (0-3); HEMATOCRIT 44.8 % (36.0-47.0); HEMOGLOBIN 14.5 g/dL (12.0-15.5); LYMPH # 1.4 x10^3/uL (1.0-4.8); LYMPH % 29 % (24-48); MEAN CORPUSCULAR HEMOGLOBIN 31 pg (25-35); MEAN CORPUSCULAR HGB CONC 32 g/dL (31-37); MEAN CORPUSCULAR VOLUME 96 fL (79-100); MONO # 0.4 x10^3/uL (0.0-1.1); MONO % 9 % (0-9); NEUT # 2.8 x10^3/uL (1.8-7.7); NEUT % 58 % (31-73); PLATELET COUNT 271 x10^3/uL (140-400); RED BLOOD COUNT 4.68 x10^6/uL (3.50-5.40); RED CELL DISTRIBUTION WIDTH 14.3 % (11.5-14.5); WHITE BLOOD COUNT 4.9 x10^3/uL (4.0-11.0)
[2021-08-14 08:48] LABS: ALBUMIN 3.1 g/dL (3.4-5.0); ALBUMIN/GLOBULIN RATIO 0.8 (1.0-1.7); CALCIUM 9.3 mg/dL (8.5-10.1); CREATININE 1.1 mg/dL (0.6-1.0); GFR 49.5; POTASSIUM 3.5 mmol/L (3.5-5.1); TOTAL BILIRUBIN 0.6 mg/dL (0.2-1.0); TOTAL PROTEIN 7.2 g/dL (6.4-8.2)
== END ==
LOC: LAB 07:47
PROVIDERS: ATTEND Internal Medicine Hematology & Oncology
DX: C18.2 Malignant neoplasm of ascending colon (principal)
CPT/HCPCS: 36415; 80053; 82378; 85025